=== PATIENT | female | born 1980 | race Hispanic/Latino ===

== ENCOUNTER 2018-03-10 18:03 | Emergency (ER) | payer OTHER ==
[~2018-03-10] VITALS: Ht 147.3 cm; Wt 81.6 kg
[~2018-03-10 18:03] MED LIST: AMOXICILLIN500 M1; COUMADIN2 MG PO; FLUCONAZOLE100 MG PO; HEPARIN LO100 UNIT/4 IV; KLONOPIN0.5 MG PO; MACROBID 100 M100 MG PO; MONOCYCLINE; MORPHINE SULFAT30 M2 PO; ROCEPHIN1 GM IV; XARELTO20 MG PO
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
[2018-03-10] MEDS ORDERED: CEFTRIAXONE SOD 1 GM VIAL IM ONE (20:30)
[2018-03-10] MEDS ORDERED: LIDOCAINE HCL 1% LOCAL INJ 20 ML VIAL ONE (20:31)
[2018-03-10 21:10] VITALS: BP 147/93
== END 2018-03-10 21:15 | disposition home or self-care (01) ==
LOC: ER 18:03
DX: Z00.6 Encounter for examination for normal comparison and control in clinical research program (principal); A69.20 Lyme disease, unspecified; Z86.711 Personal history of pulmonary embolism; Z86.718 Personal history of other venous thrombosis and embolism
CPT/HCPCS: 96372; 99282; J0696; J2001